=== PATIENT | female | born 1940 | race Caucasian/White ===

== ENCOUNTER 2018-04-29 18:21 | Emergency (ER) | payer MEDICARE, BC ==
[2018-04-29] MEDS ORDERED: NOREPINEPHRIN 8MG/250ML PREMIX 250 ML IV (18:34)
[2018-04-29] MEDS: IV NORMAL SALINE 1000ML BAG 1,000 ML IV ×2 (18:37→18:44)
[2018-04-29] MEDS: NOREPINEPHRIN 8MG/250ML PREMIX 250 ML IV (18:40)
[2018-04-29 18:45] LABS: AGAP ISTAT 31 mmol/L (6-14); BUN ISTAT 44 mg/dL (8-26); CHLORIDE ISTAT 109 mmol/L (98-110); CREATININE ISTAT 1.8 mg/dL (0.5-1.4); GLUCOSE ISTAT 178 mg/dL (70-99); HEMATOCRIT ISTAT 15 % (36-40); HEMOGLOBIN ISTAT 5.1 g/dL (12-15); ION CA ISTAT 1.18 mmol/L (1.13-1.32); SODIUM ISTAT 141 mmol/L (135-145); TOT CO2 ISTAT 7 mmol/L (23-32)
[2018-04-29] MEDS ORDERED: VANCOMYCIN PER PHARMACY MC (19:00)
[2018-04-29 19:03] LABS: BASO % 0 % (0-3); EOS % 0 % (0-3); LYMPH # 0.6 x10^3/uL (1.0-4.8); LYMPH % 8 % (24-48); MEAN CORPUSCULAR HGB CONC 33 g/dL (31-37); MONO # 0.1 x10^3/uL (0.0-1.1); MONO % 1 % (0-9); NEUT # 7.1 x10^3uL (1.8-7.7); NEUT % 91 % (31-73); PLATELET COUNT 97 x10^3/uL (140-400); RED BLOOD COUNT 1.06 x10^6/uL (3.50-5.40); WHITE BLOOD COUNT 7.8 x10^3/uL (4.0-11.0)
[2018-04-29 19:15] LABS: INR 2.2 (0.8-1.1)
[2018-04-29 19:15] LABS: POC GLUCOSE 168 mg/dL (70-99)
[2018-04-29 19:19] LABS: BILIRUBIN,URINE NEGATIVE (NEG); CLARITY,URINE CLEAR; COLOR,URINE YELLOW; GLUCOSE,URINE NEGATIVE (NEG); NITRITE,URINE NEGATIVE (NEG); PH,URINE 5.5; PROTEIN,URINE 30 mg/dL (NEG-TRACE)
[2018-04-29 19:28] LABS: ALBUMIN 3.3 g/dL (3.4-5.0); ALBUMIN/GLOBULIN RATIO 1.2 (1.0-1.7); ALK PHOS 50 U/L (46-116); ANION GAP 34 (6-14); AST (SGOT) 485 U/L (15-37); BLOOD UREA NITROGEN 46 mg/dL (7-20); BUN/CREATININE RATIO 20 (6-20); CHLORIDE 103 mmol/L (98-107); CREATINE KINASE 397 U/L (26-192); CREATININE 2.3 mg/dL (0.6-1.0); GFR 20.5; GLUCOSE 185 mg/dL (70-99); LIPASE 252 U/L (73-393); POTASSIUM 5.2 mmol/L (3.5-5.1); SODIUM 144 mmol/L (136-145); TOTAL BILIRUBIN 1.2 mg/dL (0.2-1.0); TOTAL PROTEIN 6.1 g/dL (6.4-8.2)
[2018-04-29 19:31] LABS: CARBON DIOXIDE 7 mmol/L (21-32); HEMOGLOBIN 5.4 g/dL (12.0-15.5)
[2018-04-29 19:32] LABS: ADD MAN DIFF? YES; HEMATOCRIT 16.4 % (36.0-47.0)
[2018-04-29 19:32] LABS: TROPONINI 29.323 ng/mL (0.000-0.055)
[2018-04-29 19:33] LABS: NT-PRO BNP 33783 pg/mL (0-449)
[2018-04-29 19:34] LABS: FIBRINOGEN 218 mg/dL (200-440)
[2018-04-29 19:35] LABS: AMORPHOUS SEDIMENT,UR PRESENT /HPF; BACTERIA,URINE 0 /HPF (0-FEW); RBC,URINE 0 /HPF (0-2); SQUAMOUS EPITHELIAL CELL,UR FEW /LPF; WBC,URINE 0 /HPF (0-4)
[2018-04-29 19:51] LABS: ALT (SGPT) 415 U/L (14-59)
[2018-04-29 20:25] LABS: LACTIC ACID 22.6 mmol/L (0.4-2.0)
[2018-04-29 20:29] LABS: % LYMPHS 7 % (24-48); % SEGS 93 % (35-66); NUCLEATED RBC 1; PLT ESTIMATE DECREASED (ADEQUATE); POLYCHROMASIA SLIGHT
[2018-04-29] MEDS: MIDAZOLAM HCL/PF 5 MG/5 ML VIAL. NS (20:37)
[2018-04-29] MEDS: MORPHINE SULFATE 10 MG/ML VIAL. IV (20:37)
[2018-04-29] MEDS ORDERED: MORPHINE SULFATE 4 MG/ML DISP.SYRIN. IV (20:45)
[2018-04-29] MEDS: PIPERACILLIN/TAZOBACTAM 3.375 GM in IV NORMAL SALINE 50ML 50 ML IV (20:53)
[2018-04-29] MEDS: VANCOMYCIN 1GM IVPB FOR OMNI 250 ML IV (20:53)
[2018-04-29 21:13] LABS: PROCALCITONIN 2.16 ng/mL (0.00-0.10)
[2018-04-30] MEDS ORDERED: ETOMIDATE 20 MG/10 ML VIAL. IV (03:16)
[2018-04-30] MEDS ORDERED: ROCURONIUM 50 MG/5 ML VIAL. (03:16)
[2018-04-30] MEDS ORDERED: SUCCINYLCHOLINE 200 MG/10 ML VIAL. (03:16)
[2018-04-30 06:04] LABS: TROPONIN BY ISTAT 30.74 ng/ml (<0.08)
== END 2018-04-29 22:25 | disposition expired ==
LOC: ER 18:21
DX: J96.90 Respiratory failure, unspecified, unspecified whether with hypoxia or hypercapnia (principal); E11.9 Type 2 diabetes mellitus without complications; F03.90 Unspecified dementia, unspecified severity, without behavioral disturbance, psychotic disturbance, mood disturbance, and anxiety
CPT/HCPCS: 31500; 36415; 36556; 51702; 71045; 80047; 80053; 81001; 82550; 82962; 83605; 83690; 83880; 84145; 84484; 85007; 85025; 85384; 85610; 87040; 87205; 96365; 96375; 99291-25; J2250; J2270; J7030